=== PATIENT | male | born 1990 | race Hispanic/Latino ===

== ENCOUNTER 2018-07-19 21:01 | Emergency (ER) | payer BC, OTHER ==
[~2018-07-19] VITALS: Ht 185.4 cm; Wt 106.6 kg
--- OUTSIDE RECORDS SUMMARY | 2018-07-19 21:04 | XMS REPORT | Clinical Summary ---
Author Author [facility] Organization [facility] Address Unknown Phone Unavailable Care Team Providers Care Cook Relief Name Role Phone Asked, No Pcp PCP Unavailable Allergies No Known Allergies Medications No known medications Active Problems Problem Noted Date Biceps tendonitis, right 06/13/2017 Social History Date Tobacco Use Types Packs/Day Years Used Never Smoker Alcohol Use Drinks/Week oz/Week Comments Yes Sex Assigned at Date Recorded Not on file Industry Job Start Date Occupation Not on file Not on file Not on file Travel End Travel History Travel Start No recent travel history available. Last Filed Vital Signs Not on file Plan of Treatment Health Maintenance Due Date Last Done Comments MMR VACCINES (1 of - 1990 Standard series) VARICELLA VACCINES (1 of 2002 2 - 2-dose adolescent series) INFLUENZA VACCINE 03/21/2018 HEPATITIS B VACCINES Aged Out No longer eligible based on patient's age to complete this topic IPV VACCINES Aged Out No longer eligible based on patient's age to complete this topic MENINGOCOCCAL VACCINE Aged Out No longer eligible based on patient's age to complete this topic Results Not on fileafter 07/18/2017 Insurance Payer Benefit Subscriber ID Type Phone Address Plan / Group BCBS ANTH xxxxxxxxxxxx PPO BLUE CROSS Advance Directives Patient has advance care planning documents on file. For more information, mariana hi contact: Gurmeet King [address] [place] [address]
== END 2018-07-19 21:30 | disposition home or self-care (01) ==
LOC: FSED 21:01
DX: H60.92 Unspecified otitis externa, left ear (principal); F17.210 Nicotine dependence, cigarettes, uncomplicated
CPT/HCPCS: 99282